=== PATIENT | female | born 1995 | race Caucasian/White ===

== ENCOUNTER 2020-07-20 23:07 | Emergency (ER) | payer BC ==
[~2020-07-20] VITALS: Ht 172.7 cm; Wt 59.0 kg
--- NOTE | 2020-07-20 23:40 | NUR ---
Patient bib to the ER for c/o chest pressure that started 2hrs [employer]. Patient noted with slurring of speech at times and admits to drinking Vodka [employer]. A/O x4, no labored breathing. Afebrile. All pulses palpable, no c/o GI/ distress. Dificulty ambulating, noted with extensive assistance from wheelchair to bed. Bed placed on lowest position.
[2020-07-20] MEDS ORDERED: IV NORMAL SALINE 1000 ML BAG IV ONE (23:45)
--- NOTE | 2020-07-21 00:01 | NUR ---
Dr. Tapia at bedside MSE in progress.
[2020-07-21 00:04] LABS: BASOPHILS # (AUTO) 0.1 K/uL (0.0-8.0); BASOPHILS % (AUTO) 0.9 % (0.0-2.0); EOSINOPHILS # (AUTO) 0.1 K/uL (0.0-0.7); EOSINOPHILS % (AUTO) 1.4 % (0.0-7.0); HEMATOCRIT 38.5 % (31.2-41.9); HEMOGLOBIN 13.4 g/dL (10.9-14.3); LYMPHOCYTES # (AUTO) 3.5 K/uL (20.0-40.0); MEAN CORPUSCULAR HEMOGLOBIN 31.4 uug (24.7-32.8); MEAN CORPUSCULAR HGB CONC 35 g/dL (32.3-35.6); MEAN CORPUSCULAR VOLUME 90.6 fL (75.5-95.3); MONOCYTES # (AUTO) 0.8 K/uL (2.0-10.0); MONOCYTES % (AUTO) 7.8 % (0.0-11.0); NEUTROPHILS # (AUTO) 5.1 K/uL (1.8-8.9); NEUTROPHILS % (AUTO) 52.9 % (38.5-71.5); PLATELET COUNT (AUTO) 239 K/uL (179-408); RED BLOOD CELL COUNT(AUTO) 4.25 MIL/uL (3.63-4.92); WHITE BLOOD COUNT (AUTO) 9.6 K/uL (3.8-11.8)
[2020-07-21 00:08] LABS: CREATININE 1.1 mg/dL (0.6-1.3); POTASSIUM 3.5 mmol/L (3.5-5.1)
[2020-07-21 00:14] LABS: BILIRUBIN,DIRECT 0.1 mg/dL (0.0-0.2); BILIRUBIN,TOTAL 0.2 mg/dL (0.2-1.0); TOTAL PROTEIN, SERUM 6.7 g/dL (6.4-8.2)
[2020-07-21 01:02] LABS: *AMPHETAMINE, URINE NEGATIVE (NEGATIVE); *CANNABINOID, URINE POSITIVE (NEGATIVE); *COCCAINE, URINE NEGATIVE (NEGATIVE); *OPIATE, URINE NEGATIVE (NEGATIVE); *PHENCYCLIDINE SCREEN,URINE NEGATIVE (NEGATIVE)
--- NOTE | 2020-07-21 01:35 | NUR ---
Patient is resting comfortably in bed with eyes closed, friend at bedside. Bed in lowest position.
--- NOTE | 2020-07-21 03:26 | NUR ---
Patient discharged to home in stable condition. No c/o chest pain/pressure. No SOB or labored breathing. Afebrile. No c/o n/v, no dizziness present. IV removed. Accompanied by friend. Steady gait. Written and verbal after care instructions given. Patient verbalizes understanding of instructions. Stressed follow up or return to ER for worsening s/s.
[2020-07-21 03:27] VITALS: BP 105/48
== END 2020-07-21 03:28 | disposition home or self-care (01) ==
LOC: ER 23:09
DX: R07.9 Chest pain, unspecified (principal); Z72.89 Other problems related to lifestyle
CPT/HCPCS: 36415; 70030-TC; 85025; 93005; A4663; G0480; J7030